=== PATIENT | male | born 1990 | race Caucasian/White ===

== ENCOUNTER 2016-08-30 17:19 | Emergency (ER) | payer OTHER | END 2016-08-30 17:33 | disposition home or self-care (01) | LOC: ER 17:19 | DX: S80.261A Insect bite (nonvenomous), right knee, initial encounter (principal); F32.9 Major depressive disorder, single episode, unspecified; I10 Essential (primary) hypertension; F17.210 Nicotine dependence, cigarettes, uncomplicated; W57.XXXA Bitten or stung by nonvenomous insect and other nonvenomous arthropods, initial encounter ==